=== PATIENT | male | born 1960 | race Caucasian/White ===

== ENCOUNTER 2021-10-11 14:57 | Emergency (ER) | payer SELFPAY ==
[~2021-10-11] VITALS: Ht 157.5 cm; Wt 78.0 kg
[2021-10-11] MEDS ORDERED: IBUP-2029 PO (15:43)
[2021-10-11] MEDS ORDERED: GABA-532 MT (15:43)
[2021-10-11] MEDS ORDERED: LIDO45CR TP (15:43)
[2021-10-11] MEDS ORDERED: VALA100044 PO (15:43)
[2021-10-11] MEDS ORDERED: IBUPROFEN 600MG TABLET PO STA (15:45)
== END 2021-10-11 16:13 | disposition home or self-care (01) ==
LOC: ER 14:57
DX: B02.9 Zoster without complications (principal); E78.00 Pure hypercholesterolemia, unspecified; I10 Essential (primary) hypertension
CPT/HCPCS: 82962; 99283

== ENCOUNTER 2022-01-09 12:25 | Emergency (ER) | payer MEDICAID ==
[~2022-01-09] VITALS: Ht 177.8 cm; Wt 82.0 kg
[~2022-01-09 12:25] MED LIST: GABA-532 MT; IBUP-2029 PO; LIDO45CR TP; VALA100044 PO
[2022-01-09] MEDS ORDERED: KETOROLAC 30MG/ML VIAL IV STA (13:29)
[2022-01-09] MEDS ORDERED: SODIUM CHLORIDE 0.9% 1,000 ML IV ONE (13:30)
[2022-01-09 13:37] LABS: BASOPHILS % 0.2 % (0.0-2.0); EOSINOPHILS % 0.5 % (0.0-5.0); HEMATOCRIT. 37.5 % (42.0-52.0); HEMOGLOBIN. 12.6 g/dL (14.0-18.0); LYMPHOCYTES % 17.3 % (20.0-50.0); MEAN CORPUSCULAR HEMOGLOBIN 28.9 pg (28.0-32.0); MEAN CORPUSCULAR VOLUME 85.7 fL (80.0-94.0); MEAN PLATELET VOLUME 8.4 fl (7.4-10.4); PLATELET 353 x1000/uL (130-400); RED BLOOD CELL COUNT 4.38 mill/uL (4.7-6.1)
[2022-01-09 13:40] LABS: CHLORIDE 107 mEq/L (98-107)
[2022-01-09 13:41] LABS: CLARITY URINE CLEAR (CLEAR); COLOR URINE YELLOW (YELLOW); KETONES URINE NEGATIVE (NEGATIVE); LEUKOCYTE ESTERASE URINE NEGATIVE (NEGATIVE); NITRITE URINE NEGATIVE (NEGATIVE); OCCULT BLOOD URINE 2+ (NEGATIVE); PROTEIN URINE NEGATIVE (NEGATIVE); SPECIFIC GRAVITY URINE 1.026 (1.005-1.030); UROBILINOGEN URINE 0.2 E.U./dL (0.2-1.0)
[2022-01-09] MEDS ORDERED: GABAPENTIN 300MG CAPSULE PO ONE (15:15)
[2022-01-09] MEDS ORDERED: TAMSULOSIN HCL 0.4MG SR CAPSULE PO NR (16:00)
[2022-01-09] MEDS ORDERED: TAMS-11 MT (16:09)
[2022-01-09] MEDS ORDERED: KETO10TA2 MT (16:09)
[2022-01-09 16:25] VITALS: BP 152/84
== END 2022-01-09 16:27 | disposition home or self-care (01) ==
LOC: ER 12:25
DX: N20.0 Calculus of kidney (principal); N23 Unspecified renal colic; E78.00 Pure hypercholesterolemia, unspecified; I10 Essential (primary) hypertension; Z79.899 Other long term (current) drug therapy
CPT/HCPCS: 36415; 74176; 80053; 81003; 85025; 96361; 96374; 99284; J1885; J7030; Z7610